=== PATIENT | female | born 1940 | race Caucasian/White ===

== ENCOUNTER 2018-01-27 12:35 | Outpatient (CLI) | payer MEDICARE, BC, SELFPAY ==
[2018-01-27 13:10] VITALS: BP 137/95; PULSE 78; RESP 18; O2SAT 97
== END 2018-01-27 13:25 | disposition home or self-care (01) ==
LOC: INF 12:39
PROVIDERS: PCP Family Medicine; Visit Provider Family Medicine
DX: M81.0 Age-related osteoporosis without current pathological fracture (principal)
CPT/HCPCS: 96372; J0897

== ENCOUNTER 2018-12-10 13:05 | Outpatient (CLI) | payer MEDICARE, BC, SELFPAY ==
[2018-12-10 13:10] VITALS: BP 156/79; PULSE 68; RESP 20; TEMP 36.9; O2SAT 95
[2018-12-10 13:35] VITALS: BP 155/74; PULSE 68; RESP 20; TEMP 36.9; O2SAT 95
== END 2018-12-10 13:35 | disposition home or self-care (01) ==
LOC: INF 13:08
PROVIDERS: PCP Family Medicine; Visit Provider Family Medicine
DX: M81.0 Age-related osteoporosis without current pathological fracture (principal)
CPT/HCPCS: 96372; J0897

== ENCOUNTER 2019-05-17 13:04 | Outpatient (CLI) | payer MEDICARE, BC, SELFPAY ==
[2019-05-17 13:20] VITALS: BP 132/72; PULSE 70; RESP 18; O2SAT 97
== END 2019-05-17 13:20 | disposition home or self-care (01) ==
LOC: INF 13:06
PROVIDERS: PCP Family Medicine; Visit Provider Family Medicine
DX: M81.0 Age-related osteoporosis without current pathological fracture (principal)
CPT/HCPCS: 96372; J0897

== ENCOUNTER 2019-12-07 12:45 | Outpatient (CLI) | payer MEDICARE, BC, SELFPAY ==
[2019-12-07 13:10] VITALS: BP 119/72; PULSE 67; RESP 18; TEMP 36.3
== END 2019-12-07 13:25 | disposition home or self-care (01) ==
LOC: INF 12:51
PROVIDERS: Visit Provider Family Medicine
DX: M81.0 Age-related osteoporosis without current pathological fracture (principal)
CPT/HCPCS: 96372; J0897

== ENCOUNTER 2020-08-14 13:16 | Outpatient (CLI) | payer MEDICARE, BC, SELFPAY ==
[2020-08-14 13:20] VITALS: BP 143/85; PULSE 82; RESP 18; TEMP 36.3; O2SAT 96
== END 2020-08-14 13:40 | disposition home or self-care (01) ==
LOC: INF 13:16
PROVIDERS: Visit Provider Family Medicine
DX: M81.0 Age-related osteoporosis without current pathological fracture (principal)
CPT/HCPCS: 96372; J0897

== ENCOUNTER 2021-03-15 13:05 | Outpatient (CLI) | payer MEDICARE, BC, SELFPAY ==
[2021-03-15 13:15] VITALS: BP 143/91; PULSE 93; RESP 20; TEMP 36.4; O2SAT 94
== END 2021-03-15 13:30 | disposition home or self-care (01) ==
LOC: INF 13:08
PROVIDERS: PCP Family Medicine; Visit Provider Family Medicine
DX: M81.0 Age-related osteoporosis without current pathological fracture (principal)
CPT/HCPCS: 96372; J0897

== ENCOUNTER 2021-09-24 10:33 | Outpatient (CLI) | payer MEDICARE, BC, SELFPAY ==
[2021-09-24 10:54] VITALS: BP 129/71; PULSE 84; RESP 18; O2SAT 99
== END 2021-09-24 10:56 | disposition home or self-care (01) ==
LOC: INF 10:36
PROVIDERS: PCP Family Medicine; Visit Provider Family Medicine
DX: M81.0 Age-related osteoporosis without current pathological fracture (principal)
CPT/HCPCS: 96372; J0897

== ENCOUNTER 2022-04-03 10:46 | Outpatient (CLI) | payer MEDICARE, BC, SELFPAY ==
[2022-04-03 11:25] VITALS: BP 151/78; PULSE 68; RESP 18; TEMP 36.2; O2SAT 96
== END 2022-04-03 11:46 | disposition home or self-care (01) ==
LOC: INF 10:49
PROVIDERS: PCP Family Medicine; Visit Provider Family Medicine
DX: M81.0 Age-related osteoporosis without current pathological fracture (principal)
CPT/HCPCS: 96372; J0897

== ENCOUNTER 2022-10-03 10:54 | Outpatient (CLI) | payer MEDICARE, BC, SELFPAY ==
[2022-10-03 11:31] VITALS: BP 138/76; PULSE 66; RESP 17; O2SAT 95
== END 2022-10-03 11:40 | disposition home or self-care (01) ==
LOC: INF 10:57
PROVIDERS: PCP Family Medicine; Visit Provider Family Medicine
DX: M81.0 Age-related osteoporosis without current pathological fracture (principal)
CPT/HCPCS: 96372; J0897

== ENCOUNTER 2023-04-08 10:45 | Outpatient (CLI) | payer MEDICARE, BC, SELFPAY ==
[2023-04-08 11:20] VITALS: BP 152/96; PULSE 84; RESP 17; O2SAT 95
[2023-04-08] MEDS: DENOSUMAB 60 MG/ML SYRINGE SQ (11:20)
== END 2023-04-08 11:35 | disposition home or self-care (01) ==
LOC: INF 10:46
PROVIDERS: PCP Family Medicine; Visit Provider Family Medicine
DX: M81.0 Age-related osteoporosis without current pathological fracture (principal)
CPT/HCPCS: 96372; J0897

== ENCOUNTER 2023-10-09 11:53 | Outpatient (CLI) | payer MEDICARE, BC, SELFPAY ==
[2023-10-09 12:12] VITALS: BP 149/86; PULSE 77; RESP 18; TEMP 36.3; O2SAT 98
[2023-10-09] MEDS: DENOSUMAB 60 MG/ML SYRINGE SQ (12:13)
== END 2023-10-09 12:29 | disposition home or self-care (01) ==
LOC: INF 11:54
PROVIDERS: PCP Family Medicine; Visit Provider Family Medicine
DX: M81.0 Age-related osteoporosis without current pathological fracture (principal)
CPT/HCPCS: 96372; J0897

== ENCOUNTER 2024-04-11 10:46 | Outpatient (CLI) | payer MEDICARE, BC, SELFPAY ==
[2024-04-11 11:10] VITALS: BP 169/75; PULSE 79; RESP 18; TEMP 36.7; O2SAT 99
[2024-04-11] MEDS: DENOSUMAB 60 MG/ML SYRINGE SUBCUT (11:10)
== END 2024-04-11 11:15 | disposition home or self-care (01) ==
LOC: INF 10:49
PROVIDERS: PCP Family Medicine; Visit Provider Family Medicine
DX: M81.0 Age-related osteoporosis without current pathological fracture (principal)
CPT/HCPCS: 96372; J0897